=== PATIENT | female | born 1940 | race Caucasian/White ===

== ENCOUNTER 2018-05-13 09:00 | Inpatient (IN) | payer OTHER ==
[~2018-05-13] VITALS: Ht 162.6 cm; Wt 63.5 kg
[~2018-05-13 09:00] MED LIST: GLIPIZIDE ER2.5 MG; LANTUS SOL100 UNIT/1; LISINOPRIL2.5 MG; METFORMIN HCL500 MG
[2018-05-13] MEDS ORDERED: FOLIC ACID1 MG PO (15:48)
[2018-05-13] MEDS ORDERED: NORVASC5 MG PO (15:48)
[2018-05-13] MEDS ORDERED: ISOSORBIDE DINI30 MG PO (15:48)
[2018-05-13] MEDS ORDERED: HYDROCHLOROTHIA25 MG PO (15:48)
[2018-05-13] MEDS ORDERED: GABAPENTIN100 MG PO (15:49)
[2018-05-13] MEDS ORDERED: ASA81 MG PO (15:49)
== END 2018-05-22 16:09 | DRG 470 ==
LOC: O/R 05-20 05:47 → SURG 05-20 05:47 → SURH 05-20 07:00 → SURG 05-20 12:39
PROVIDERS: Orthopaedic Surgery
PROC: 0SRD0J9 Replacement of Left Knee Joint with Synthetic Substitute, Cemented, Open Approach (ICD-10-PCS; principal; 2018-05-20 07:00)
DX: M17.12 Unilateral primary osteoarthritis, left knee (principal); D62 Acute posthemorrhagic anemia; I10 Essential (primary) hypertension; E11.9 Type 2 diabetes mellitus without complications; R42 Dizziness and giddiness

== ENCOUNTER 2018-05-13 10:38 | Outpatient (CLI) | payer OTHER ==
[2018-05-13] MEDS ORDERED: NORVASC5 MG PO (15:48)
[2018-05-13] MEDS ORDERED: ISOSORBIDE DINI30 MG PO (15:48)
[2018-05-13] MEDS ORDERED: HYDROCHLOROTHIA25 MG PO (15:48)
[2018-05-13] MEDS ORDERED: FOLIC ACID1 MG PO (15:48)
[2018-05-13] MEDS ORDERED: ASA81 MG PO (15:49)
[2018-05-13] MEDS ORDERED: GABAPENTIN100 MG PO (15:49)
== END 2018-05-13 11:30 | disposition home or self-care (01) ==
LOC: RAD 10:38
DX: D68.8 Other specified coagulation defects (principal); E78.2 Mixed hyperlipidemia; N39.0 Urinary tract infection, site not specified; R07.89 Other chest pain; I10 Essential (primary) hypertension

== ENCOUNTER 2019-02-10 08:15 | Day surgery (SDC) | payer OTHER ==
[~2019-02-10 08:15] MED LIST changes: +ASA81 MG PO; +FOLIC ACID1 MG PO; +GABAPENTIN100 MG PO; +HYDROCHLOROTHIA25 MG PO; +ISOSORBIDE DINI30 MG PO; +NORVASC5 MG PO
[2019-02-10] MEDS ORDERED: PERCOCET 5-3251 EACH PO (11:33)
[2019-02-10] MEDS ORDERED: NABUMETONE750 MG PO (11:33)
== END 2019-02-10 14:45 | disposition home or self-care (01) ==
LOC: CIR.AMB 08:15
DX: T84.89XA Other specified complication of internal orthopedic prosthetic devices, implants and grafts, initial encounter (principal)

== ENCOUNTER 2021-04-21 11:25 | Emergency (ER) | payer OTHER ==
[~2021-04-21] VITALS: Ht 162.6 cm; Wt 65.8 kg
[~2021-04-21 11:25] MED LIST changes: +NABUMETONE750 MG PO; +PERCOCET 5-3251 EACH PO
== END 2021-04-21 15:36 | disposition home or self-care (01) ==
LOC: ER 11:25
DX: K29.70 Gastritis, unspecified, without bleeding (principal); R10.13 Epigastric pain

== ENCOUNTER 2022-01-03 14:48 | Emergency (ER) | payer OTHER ==
[~2022-01-03] VITALS: Ht 167.6 cm; Wt 65.3 kg
[2022-01-03] MEDS ORDERED: ATORVASTATIN CA20 MG (16:00)
[2022-01-03] MEDS ORDERED: LOSARTAN POTASS50 MG (16:00)
== END 2022-01-03 21:08 | disposition home or self-care (01) ==
LOC: ER 14:48
DX: L03.114 Cellulitis of left upper limb (principal)

== ENCOUNTER 2022-01-04 10:05 | Emergency (ER) | payer OTHER ==
[~2022-01-04] VITALS: Ht 170.2 cm; Wt 81.6 kg
[~2022-01-04 10:05] MED LIST changes: +ATORVASTATIN CA20 MG; +LOSARTAN POTASS50 MG
== END 2022-01-04 13:36 | disposition home or self-care (01) ==
LOC: ER 10:05
DX: R60.0 Localized edema (principal); I10 Essential (primary) hypertension; E11.9 Type 2 diabetes mellitus without complications; Z79.4 Long term (current) use of insulin

== ENCOUNTER 2022-03-21 17:41 | Emergency (ER) | payer OTHER ==
[~2022-03-21] VITALS: Ht 162.6 cm; Wt 65.8 kg
== END 2022-03-21 21:54 | disposition home or self-care (01) ==
LOC: ER 17:41
DX: I10 Essential (primary) hypertension (principal); Z88.6 Allergy status to analgesic agent; Z88.8 Allergy status to other drugs, medicaments and biological substances; M19.042 Primary osteoarthritis, left hand; Z86.73 Personal history of transient ischemic attack (TIA), and cerebral infarction without residual deficits; E11.65 Type 2 diabetes mellitus with hyperglycemia; Z79.84 Long term (current) use of oral hypoglycemic drugs

== ENCOUNTER 2022-03-27 15:56 | Emergency (ER) | payer OTHER ==
[~2022-03-27] VITALS: Ht 162.6 cm; Wt 65.8 kg
[2022-03-27] MEDS ORDERED: TOPROL XL50 M1 (16:39)
[2022-03-27] MEDS ORDERED: LASIX20 MG (16:39)
== END 2022-03-27 19:02 | disposition home or self-care (01) ==
LOC: ER 15:56
DX: I10 Essential (primary) hypertension (principal)

== ENCOUNTER 2022-11-26 17:26 | Emergency (ER) | payer OTHER ==
[~2022-11-26] VITALS: Ht 162.6 cm; Wt 68.0 kg
[~2022-11-26 17:26] MED LIST changes: +LASIX20 MG; +TOPROL XL50 M1
[2022-11-26] MEDS ORDERED: VERELAN180 MG (18:00)
[2022-11-26] MEDS ORDERED: ISOSORBIDE MONO30 MG (18:00)
[2022-11-26] MEDS ORDERED: PEPCID40 MG (18:00)
[2022-11-26] MEDS ORDERED: ATORVASTATIN CA20 MG (18:01)
[2022-11-26] MEDS ORDERED: KEPPRA500 MG (18:01)
[2022-11-26] MEDS ORDERED: CHILDREN'S ASPI81 MG (18:01)
[2022-11-26] MEDS ORDERED: HORIZANT300 MG (18:01)
[2022-11-26] MEDS ORDERED: CARBIDOPA-LEVO1 EAC3 (18:02)
== END 2022-11-27 00:59 | disposition home or self-care (01) ==
LOC: ER 17:26
DX: I10 Essential (primary) hypertension (principal); Z88.8 Allergy status to other drugs, medicaments and biological substances; E11.9 Type 2 diabetes mellitus without complications; Z79.84 Long term (current) use of oral hypoglycemic drugs; Z79.4 Long term (current) use of insulin

== ENCOUNTER → 2025-03-04 | Emergency (ER) | payer OTHER ==
[~2025-03-04] VITALS: Ht 162.6 cm; Wt 68.5 kg
[~2025-03-04] MED LIST changes: +CARBIDOPA-LEVO1 EAC3; +CHILDREN'S ASPI81 MG; +GILTUSS COUGH-118 M1 PO; +HORIZANT300 MG; +IPRATROPIUM/ALBUTEROL SULFATE 3 ML AMPUL.NEB IH ONE; +ISOSORBIDE MONO30 MG; +KEPPRA500 MG; +PEPCID40 MG; +VERELAN180 MG; +XOPENEX CO1.25 MG/0. IH; +ZITHROMAX TRI-500 MG PO
[2025-03-04 12:10] VITALS: BP 187/68; O2SAT 97
[2025-03-04 15:42] LABS: HEMATOCRIT 37.4 % (36.0-45.00); HEMOGLOBIN 12.4 g/dL (12.0-15.00); MEAN CELL VOLUME 80.4 fL (80.00-100.00); MEAN CORPUSCULAR HEMOGLOBIN 26.6 pg (27.00-32.0); MEAN CORPUSCULAR HGB CONC 33.1 g/dl (32.0-36.0); PLATELET COUNT 269 K/uL (150-450); RED BLOOD COUNT 4.65 M/uL (4.00-6.00)
[2025-03-04 15:58] LABS: COVID-19 AG NEGATIVE (NEGATIVE); INFLUENZA A AG NEGATIVE (NEGATIVE)
[2025-03-04 16:03] LABS: ALBUMIN 3.4 gm/dL (3.4-5.0); BILIRUBIN TOTAL 0.53 mg/dL (0.3-1.2); CALCIUM 9.6 mg/dL (8.5-10.1); CREATININE SERUM 1.17 mg/dL (0.55-1.02); GFR 43.86; GLOBULINA 4.7 G/DL (2.4-3.5); POTASSIUM 3.27 mEq/L (3.5-5.1); TOTAL PROTEIN 8.1 gm/dL (6.4-8.2)
[2025-03-04 16:37] LABS: ABG PH 7.444 (7.35-7.45); ABG PO2 86.6 mmHg (80-100); BASE EXCESS 0.9 mmol/l; BICARBONATE 24.7 mmol/l (23-25); Tco2 25.9 mmol/l
[2025-03-04 17:27] LABS: ABG pCO2 36.9 mmHg (35-45); allen test SATISFACTORY; mode ROOM AIR; o2 21 %; puncture site RADIAL LEFT
== END | disposition home or self-care (01) ==
LOC: ER 12:03
PROVIDERS: General Practice
DX: J98.8 Other specified respiratory disorders (principal); J98.01 Acute bronchospasm; R05.9 Cough, unspecified; Z20.822 Contact with and (suspected) exposure to COVID-19; I10 Essential (primary) hypertension; E11.9 Type 2 diabetes mellitus without complications; Z79.4 Long term (current) use of insulin; Z88.5 Allergy status to narcotic agent